=== PATIENT | male | born 1970 | race Caucasian/White ===

== ENCOUNTER 2018-11-28 22:44 | Inpatient (IN) | payer OTHER ==
[~2018-11-28] VITALS: Ht 170.2 cm; Wt 93.4 kg
--- NOTE | 2018-11-28 22:55 | NUR ---
MARCO. C/O "HAVING ABD PAIN FOR X1 DAY, PAIN WITH URINATION" -SOB. AOX4. AMBULATORY. - ACUTE DISTRESS.
[2018-11-28] MEDS ORDERED: LIDOCAINE 2% JEL UROJET 10 ML MM ONE (23:07)
[2018-11-28] MEDS ORDERED: MORPHINE SULFATE INJ 2 MG/ML DISP.SYRIN ONE (23:25)
[2018-11-28] MEDS ORDERED: ONDANSETRON HCL/PF 4 MG/2 ML VIAL ONE (23:25)
[2018-11-28] MEDS ORDERED: MORPHINE SULFATE INJ 2 MG/ML DISP.SYRIN IV ONE (23:30)
[2018-11-28] MEDS ORDERED: ONDANSETRON HCL/PF 4 MG/2 ML VIAL IVP ONE (23:30)
[2018-11-28] MEDS ORDERED: IV NS 0.9% 1,000 ML BAG IV ONE (23:30)
[2018-11-28 23:46] LABS: BASOPHILS % (AUTO) 0.2 % (0.0-2.0); EOSINOPHILS % (AUTO) 0.9 % (0.0-6.0); HEMATOCRIT 40 % (39-51); HEMOGLOBIN 13.9 g/dL (13.5-17.5); LYMPHOCYTES # (AUTO) 1.1 /CMM (0.8-4.8); LYMPHOCYTES % (AUTO) 12.2 % (20.0-44.0); MEAN CORPUSCULAR HGB CONC 35 g/dl (31.0-36.0); MEAN CORPUSCULAR VOLUME 83 fL (80-96); MONOCYTES # (AUTO) 0.5 /CMM (0.1-1.30); MONOCYTES % (AUTO) 5.7 % (2.0-12.0); NEUTROPHILS # (AUTO) 7.3 /CMM (1.8-8.9); PLATELET COUNT (AUTO) 117 /CMM (150-450); RED BLOOD CELL COUNT(AUTO) 4.88 MIL/uL (4.5-6.0)
[2018-11-28 23:55] LABS: CALCIUM, SERUM 8.9 mg/dL (8.5-10.1); CARBON DIOXIDE 30 mmol/L (21-32); CHLORIDE 104 mmol/L (98-107); CREATININE 0.8 mg/dL (0.6-1.3); GLUCOSE 193 mg/dL (74-106); POTASSIUM 3.8 mmol/L (3.5-5.1); SODIUM SERUM 140 mmol/L (136-145); UREA NITROGEN, BLOOD 14 mg/dL (7-18)
[2018-11-29 00:06] LABS: APPEARANCE,URINE Clear (CLEAR); BILIRUBIN,URINE SMALL (NEGATIVE); BLOOD, URINE Trace-intact Ery/uL (NEGATIVE); COLOR,URINE Dark (YELLOW); KETONES,URINE 15 (NEGATIVE); LEUKOCYTE ESTERASE ,URINE Negative (NEGATIVE); NITRITE, URINE Negative (NEGATIVE); PROTEIN,URINE Trace mg/dl (NEGATIVE); UGLUCOSE 100 MG/DL mg/dL (NEGATIVE)
[2018-11-29 00:12] LABS: ALANINE AMINOTRANSFERASE 61 U/L (12-78); ALBUMIN 3.9 g/dL (3.4-5.0); ALKALINE PHOSPHATASE 59 U/L (46-116); ASPARTATE AMINOTRANSFERASE 20 U/L (15-37); BILIRUBIN,DIRECT 0.1 mg/dL (0.0-0.2); BILIRUBIN,TOTAL 0.7 mg/dL (0.2-1.0); LIPASE 118 U/L (73-393); TOTAL PROTEIN, SERUM 7.3 g/dL (6.4-8.2)
[2018-11-29 00:26] LABS: BACTERIA,URINE None seen /HPF (None Seen); RBC,URINE 0-2 /HPF (0-2); SQUAMOUS EPITHELIAL CELL,UR Few /HPF (None Seen); WBC,URINE 0-2 /HPF (0-3)
[2018-11-29] MEDS ORDERED: IV NS 0.9% 1,000 ML IV PRN (00:30)
[2018-11-29] MEDS ORDERED: CEFTRIAXONE 1GM BAG (ER ONLY) 1 GM/50 ML PIGGYBACK IV ONE (00:30)
[2018-11-29] MEDS ORDERED: CEFTRIAXONE 1GM BAG (ER ONLY) 50 ML IV ONE (00:46)
[2018-11-29] MEDS ORDERED: METRONIDAZOLE 500MG/ NS 100ML 500 MG in PREMIX 1 EA IV SCH (03:00)
[2018-11-29] MEDS ORDERED: LEVOFLOXACIN 750 MG /D5W 150ML 750 MG in PREMIX 1 EA IV SCH (03:00)
[2018-11-29] MEDS ORDERED: METRONIDAZOLE 500MG/ NS 100ML 100 ML IV ONE (03:06)
[2018-11-29] MEDS ORDERED: LEVOFLOXACIN 750 MG /D5W 150ML 150 ML IV ONE (03:06)
[2018-11-29] MEDS ORDERED: MORPHINE SULFATE INJ 2 MG/ML DISP.SYRIN IV ONE (03:30)
--- NOTE | 2018-11-29 03:53 | NUR ---
REPORT GIVEN TO GUADALUPE HUERTAS,.
[2018-11-29] MEDS ORDERED: ONDANSETRON HCL/PF 4 MG/2 ML VIAL IVP PRN (04:00)
[2018-11-29] MEDS ORDERED: MAGNESIUM HYDROXIDE 30 ML UDC PO PRN (04:00)
[2018-11-29] MEDS ORDERED: MAG HYDROX/AL HYDROX/SIMETH 30 ML UDC PO PRN (04:00)
[2018-11-29] MEDS ORDERED: ACETAMINOPHEN 325 MG TABLET PO PRN (04:00)
[2018-11-29] MEDS ORDERED: HYDROMORPHONE INJ 2 MG/ML DISP.SYRIN IV PRN (04:00)
--- NOTE | 2018-11-29 04:19 | NUR ---
RN MS ADMISSION NOTES RECEIVED PATIENT FROM ER VIA [facility]. CHIEF COMPLAINTS: ABD PAIN; PAINFUL URINATION. DX. COLITIS. PATIENT IS ALERT AND ORIENTED X4, VERBALLY RESPONSIVE, ABLE TO MAKE NEEDS KNOWN. BREATHING EVEN AND UNLABORED. NO SOB NOTED. TOLERATING ROOM AIR. WITH COMPLAINTS OF DISCOMFORT IN THE ABDOMEN, BUT NOT REQUIRING PAIN MEDICATION AT THE MOMENT. IV ON LEFT AC G#20 INTACT AND PATENT. SKIN DRY AND WARM TO TOUCH. AFEBRILE. PATIENT IS AMBULATORY WITH STEADY GAIT. SKIN CHECK RENDERED WITH NO SKIN ISSUES NOTED. PATIENT REFUSED TO CHANGE INTO A GOWN AND PREFERS TO BE IN HIS OWN CLOTHES. ORIENTED TO THE USE OF UNIT AMENITIES. ALL OTHER NEEDS MET. CALL LIGHT WITHIN REACH. SAFETY MEASURES IN PLACE. WILL CONTINUE TO MONITOR.
[2018-11-29 04:33] VITALS: BP 119/69
[2018-11-29] MEDS: IV NS 0.9% 1,000 ML IV PRN ×2 (04:36→13:16)
[2018-11-29] MEDS ORDERED: PIPERACILLIN /TAZOBACTAM 3.375 G VIAL IV ONE (05:42)
[2018-11-29] MEDS ORDERED: METF-440 PO (05:51)
[2018-11-29] MEDS ORDERED: PIPERACILLIN /TAZOBACTAM 3.375 G in IV D5W 50 ML IV ONE (06:00)
[2018-11-29] MEDS ORDERED: PIPERACILLIN /TAZOBACTAM 3.375 G in IV D5W 50 ML IV SCH (06:00)
--- NOTE | 2018-11-29 06:47 | NUR ---
RN MS CLOSING NOTES PATIENT SLEEPING IN BED. EASILY AROUSABLE. IN NO DISTRESS. BREATHING EVEN AND UNLABORED. NO SOB NOTED. TOLERATING ROOM AIR. CURRENTLY WITH NO COMPLAINTS OF PAIN OR DISCOMFORT. NO FACIAL GRIMACING. IV ON LEFT AN INTACT AND PATENT WITH IVF INFUSING. ALL OTHER NEEDS MET. SAFETY MEASURES IN PLACE. CALL LIGHT WITHIN REACH. WILL ENDORSE TO ONCOMING NURSE FOR MARIE.
--- NOTE | 2018-11-29 07:37 | NUR ---
RN MS OPENING NOTES BEDSIDE REPORT GIVEN PATIENT A/O X4 NO SIGNS OR SYMPTOMS OF RESPIRATORY DISTRESS OR ACUTE PAIN NOTED AMBULATORY IN ROOM BRP. NPO AT THIS TIME IV TO LAC 20 GAUGE WITH NS@ 125ML/HR SAFETY PRECAUTIONS IN PLACE BED IN LOW POSITION SIDE RAILS X2 ABLE TO MAKE NEEDS KNOWN CALL LIGHT WITHIN REACH WILL CONT TO MONITOR
[2018-11-29 08:00] VITALS: BP 121/70
[2018-11-29] MEDS ORDERED: ATOR80TA PO (08:50)
[2018-11-29] MEDS ORDERED: PANTOPRAZOLE 40 MG VIAL IV SCH (09:00)
[2018-11-29] MEDS: PIPERACILLIN /TAZOBACTAM 3.375 G in IV D5W 100 ML IV SCH ×2 (13:05→19:40)
[2018-11-29 16:00] VITALS: BP 127/80
--- NOTE | 2018-11-29 19:30 | NUR ---
RECEIVED PATIENT IN BED AWAKE. AO X 3, ABLE TO MAKE NEED KNOWN. NO ACUTE DISTRESS NOTED. DENIES ANY PAIN AT THIS TIME. IV SITE PATENT, INTACT; FLUSHED. SAFETY REMINDERS GIVEN. ON LOW BED WITH BILATERAL UPPER SIDE RAILS UP. CALL FIELDS WITHIN EASY REACH. WILL CONTINUE TO MONITOR.
--- NOTE | 2018-11-29 19:36 | NUR ---
ENDORSED REPORT TO NOC
[2018-11-29 19:47] VITALS: BP 126/83
[2018-11-29 19:58] LABS: CALCIUM, SERUM 8.6 mg/dL (8.5-10.1); CREATININE 0.9 mg/dL (0.6-1.3); POTASSIUM 3.8 mmol/L (3.5-5.1)
[2018-11-29 20:00] VITALS: BP 126/83
[2018-11-29 20:54] LABS: BASOPHILS % (AUTO) 0.3 % (0.0-2.0); HEMATOCRIT 36 % (39-51); HEMOGLOBIN 12.8 g/dL (13.5-17.5); LYMPHOCYTES # (AUTO) 1.5 /CMM (0.8-4.8); LYMPHOCYTES % (AUTO) 30.3 % (20.0-44.0); MEAN CORPUSCULAR HGB CONC 35 g/dl (31.0-36.0); MEAN CORPUSCULAR VOLUME 82 fL (80-96); MONOCYTES # (AUTO) 0.3 /CMM (0.1-1.30); MONOCYTES % (AUTO) 6.4 % (2.0-12.0); NEUTROPHILS # (AUTO) 3.1 /CMM (1.8-8.9); PLATELET COUNT (AUTO) 106 /CMM (150-450); RED BLOOD CELL COUNT(AUTO) 4.46 MIL/uL (4.5-6.0)
[2018-11-29] MEDS ORDERED: INSULIN REGULAR, HUMAN 100 UNIT/ML 3 ML VIAL SQ PRN (21:00)
[2018-11-29] MEDS ORDERED: DEXTROSE 50%-WATER 50 ML DISP.SYRIN IV PRN (21:00)
--- NOTE | 2018-11-29 21:30 | NUR ---
LATEST CBC AND LACTIC ACID REPORT GIVEN TO LORELEI Fortune NP. PER LORELEI, SHE WILL NOT CLEAR PATIENT FOR DISCHARGE. PATIENT AND MADE AWARE THAT LORELEI WILL NOT CLEAR PATIENT FOR DISCHARGE.
--- NOTE | 2018-11-29 21:45 | NUR ---
PATIENT STATED THAT HE WANTS AND WILL GO HOME REGARDLESS OF ATTENDING PROVIDER'S DECISION. BUBBA DAVILA PAPER PROCESSING MACHINE HELPER MADE AWARE. RISKS AND CONSEQUENCES OF LEAVING THE HOSPITAL AND THE BENEFITS OF STAYING IN THE HOSPITAL WERE EXPLAINED TO PATIENT. PATIENT VERBALIZED UNDERSTANDING AND STILL WANTS TO LEAVE AMA. BUBBA GONZALEZ AWARE.
[2018-11-29] MEDS ORDERED: ATORVASTATIN 40 MG TABLET PO SCH (22:00)
[2018-11-29] MEDS ORDERED: BLOOD SUGAR DIAGNOSTIC 1 EACH STRIP IN SCH (22:00)
--- NOTE | 2018-11-29 22:05 | NUR ---
PATIENT LEFT WITH FAMILY FOR HOME. PATIENT SIGNED AMA FORM. PATIENT TOOK ALL BELONGINGS. IV DCD. ARMBAND TAKEN OFF. PATIENT IN STABLE CONDITION. AMBULATORY WITH STEADY GAIT.
== END 2018-11-29 22:05 | disposition left against medical advice (07) | DRG 244 ==
LOC: ER 22:45 → MEDSG2 11-29 03:44
DX: K57.92 Diverticulitis of intestine, part unspecified, without perforation or abscess without bleeding (principal); E87.2 Acidosis; D69.6 Thrombocytopenia, unspecified; E11.65 Type 2 diabetes mellitus with hyperglycemia; R16.2 Hepatomegaly with splenomegaly, not elsewhere classified; K76.0 Fatty (change of) liver, not elsewhere classified; Z79.899 Other long term (current) drug therapy; Z79.84 Long term (current) use of oral hypoglycemic drugs; K80.20 Calculus of gallbladder without cholecystitis without obstruction; J98.11 Atelectasis
CPT/HCPCS: 36415; 80048-TC; 80076-TC; 81000-TC; 82962-TC; 83605-TC; 83690-TC; 84484-TC; 85025-TC; 85730-TC; 87040-TC; 87081-TC; 87086-TC; A4216; C9113; G0378; J0696; J1815; J1956; J2270; J2405; J2543; J3490; J7030; J7060